=== PATIENT | female | born 2000 | race Caucasian/White ===

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

== ENCOUNTER → 2021-02-03 | Outpatient (CLI) | payer BC ==
[~2021-02-03] MED LIST changes: +LODINE CAP 300300 MG PO
== END ==
LOC: CT 17:00
DX: R10.9 Unspecified abdominal pain (principal); N92.0 Excessive and frequent menstruation with regular cycle; R31.9 Hematuria, unspecified; N83.201 Unspecified ovarian cyst, right side

== ENCOUNTER → 2021-10-21 | Outpatient (CLI) | payer BC | LOC: LAB 11:13 | DX: N91.2 Amenorrhea, unspecified (principal) | CPT/HCPCS: 36415; 84703 ==